=== PATIENT | female | born 1990 | race African-American/Black ===

== ENCOUNTER 2021-02-25 20:32 | Emergency (ER) | payer OTHER ==
[~2021-02-25] VITALS: Ht 167.6 cm; Wt 73.0 kg
[~2021-02-25 20:32] MED LIST: ALBUTEROL
[2021-02-25] MEDS ORDERED: LORAZEPAM 1MG TABLET PO ONE (21:00)
[2021-02-25] MEDS ORDERED: HYDR-3782 MT (21:22)
[2021-02-25 21:30] VITALS: BP 121/67
[2021-02-25 21:46] LABS: *AMPHETAMINES SCREEN URINE NEGATIVE (NEGATIVE); *COCAINE SCREEN URINE NEGATIVE (NEGATIVE); CANNABINOID URINE SCREEN NEGATIVE (NEGATIVE); METHADONE URINE SCREEN NEGATIVE (NEGATIVE); OPIATES URINE SCREEN NEGATIVE (NEGATIVE); PHENCYCLIDINE URINE SCREEN NEGATIVE (NEGATIVE)
[2021-02-25 21:47] LABS: *BARBITURATES SCREEN URINE NEGATIVE (NEGATIVE); *BENZODIAZEPINES SCREEN URINE NEGATIVE (NEGATIVE)
== END 2021-02-25 21:40 | disposition home or self-care (01) ==
LOC: ER 20:32
DX: F43.0 Acute stress reaction (principal); Z63.4 Disappearance and death of family member; R03.0 Elevated blood-pressure reading, without diagnosis of hypertension; J45.909 Unspecified asthma, uncomplicated
CPT/HCPCS: 80305; 81025; 99283